=== PATIENT | male | born 1995 | race Caucasian/White ===

== ENCOUNTER 2024-07-24 09:24 | Emergency (ER) | payer OTHER ==
[2024-07-24] MEDS ORDERED: Lidocaine 2% 10 ML Amp INJECT ONE (09:57)
[2024-07-24] MEDS: Bupivacaine 0.5% 30 ML SDV INJECT PRN (10:05)
[2024-07-24] MEDS: Diphtheria,Pertussis(Acell),Tetanus Vaccine 0.5 ML Syringe IM ONE (10:05)
[2024-07-24] MEDS: Lidocaine 1% 10 ML MDV INJECT ONE (10:10)
== END 2024-07-24 10:51 | disposition home or self-care (01) ==
LOC: VM.ED 09:24
DX: S62.665B Nondisplaced fracture of distal phalanx of left ring finger, initial encounter for open fracture (principal); Z23 Encounter for immunization; W23.0XXA Caught, crushed, jammed, or pinched between moving objects, initial encounter; Y99.0 Civilian activity done for income or pay
CPT/HCPCS: 12002; 73140-F3; 90471; 90715; 99283; 99283-25; J0665; J3490